=== PATIENT | female | born 1975 ===

== ENCOUNTER 2018-02-26 07:22 | Emergency (ER) | payer OTHER ==
[2018-02-26 07:28] VITALS: BMI 28.3
--- NOTE | 2018-02-26 08:21 | RAD ---
Date of service: 02/26/2018 HISTORY: vague left chest and left arm discomfort for 2d COMPARISON: Chest radiographs 02/02/2015. TECHNIQUE: Chest PA and lateral FINDINGS: LUNGS: Diminished inspiratory volume. No active airspace disease identified bilaterally. PLEURA: No significant pleural effusion identified. No pneumothorax apparent. CARDIOVASCULAR: No aortic atherosclerotic calcification present. Normal cardiac size. No pulmonary vascular congestion. OSSEOUS STRUCTURES: No significant abnormalities. VISUALIZED UPPER ABDOMEN: Normal. OTHER FINDINGS: None. IMPRESSION: Diminished airspace disease. No acute cardiovascular disease appreciated. No active airspace disease identified bilaterally.
--- NOTE | 2018-02-26 08:23 | ED PDOC ---
HPI: General Adult Time Seen by Provider: 02/26/18 07:43 Chief Complaint (Nursing): Upper Extremity Problem/Injury Chief Complaint (Provider): Body Ache and Left arm pain History Per: Patient History/Exam Limitations: no limitations Onset/Duration Of Symptoms: Days (2) Current Symptoms Are (Timing): Still Present Additional Complaint(s): 42 year old female with PMHx of hyperlipidemia presents to the ER fro an evaluation of left side discomfort onset for 2 days. Patient states she takes cholesterol pills that were giving her discomfort in different areas associated with nausea, tingling, body ache, body pain and bitterness in her mouth. Also states, she has an appointment with her PMD tomorrow. Patient reports the symptoms become worse when resting at night and moving. Patient provided a copy of her labs from December 26 which presents ASO titer, high cholesterol, no diabetes, normal urine test. She takes Rosuvastatin calcium 10mg and vitamin B1, B6, B12 injection but denies fever or vomiting. PMD: Non [facility] Provider Past Medical History Reviewed: Historical Data, Nursing Documentation, Vital Signs Vital Signs: Last Vital Signs Temp 97.9 F 02/26/18 07:28 Pulse 100 H 02/26/18 07:28 Resp 20 02/26/18 07:28 BP 136/91 H 02/26/18 07:28 Pulse Ox 99 02/26/18 07:28 - Medical History PMH: Hyperlipidemia Denies: Chronic Kidney Disease - Surgical History Surgical History: - Family History Family History: States: Unknown Family Hx - Immunization History Hx Tetanus Toxoid Vaccination: No Hx Influenza Vaccination: No Hx Pneumococcal Vaccination: No - Home Medications Home Medications: Ambulatory Orders Medication Instructions Recorded Multivit/Folic Acid/I 1 tab BID 08/23/17 [] Naproxen [Naprosyn] 500 mg PO BID 5 Days #10 tablet 08/26/17 Acetaminophen/Codeine 1 tab PO Q6H PRN #12 tab 08/27/17 [Tylenol/Codeine 300 MG/30 MG] Doxycycline Monohydrate 100 mg PO BID #20 tablet 08/27/17 Methylergonovine Maleate 0.2 mg PO Q6 #4 tablet 08/27/17 [Methergine] - Allergies Allergies/Adverse Reactions: Allergies Allergy/AdvReac Type Severity Reaction Status Date / Time No Known Allergies Allergy Verified 08/26/17 20:00 Review of Systems ROS Statement: Except As Marked, All Systems Reviewed And Found Negative Constitutional: Negative for: Fever Gastrointestinal: Positive for: Nausea. Negative for: Vomiting Musculoskeletal: Positive for: Arm Pain (left arm), Other (body pain) Neurological: Positive for: Other (tingling) Physical Exam - Reviewed Nursing Documentation Reviewed: Yes Vital Signs Reviewed: Yes - Physical Exam Appears: Positive for: Non-toxic, No Acute Distress Head Exam: Positive for: ATRAUMATIC, NORMAL INSPECTION, NORMOCEPHALIC Skin: Positive for: Normal Color, Warm, Dry Eye Exam: Positive for: EOMI, Normal appearance, PERRL ENT: Positive for: Normal ENT Inspection Neck: Positive for: Normal, Painless ROM, Supple. Negative for: Decreased ROM Cardiovascular/Chest: Positive for: Regular Rate, Rhythm. Negative for: Murmur Respiratory: Positive for: Normal Breath Sounds. Negative for: Decreased Breath Sounds, Wheezing, Respiratory Distress Gastrointestinal/Abdominal: Positive for: Soft, Tenderness (mild on left side and epigastric) Back: Positive for: Normal Inspection. Negative for: L CVA Tenderness, R CVA Tenderness Extremity: Positive for: Normal ROM. Negative for: Tenderness, Pedal Edema, Deformity Neurologic/Psych: Positive for: Alert, Oriented (x3). Negative for: Motor/Sensory Deficits - Laboratory Results Result Diagrams: 02/26/18 08:05 02/26/18 08:05 - ECG O2 Sat by Pulse Oximetry: 99 (RA) Pulse Ox Interpretation: Normal Medical Decision Making Medical Decision Making: Time: 0753 Initial Impression: Left sided discomfort, generalized body ache Initial Plan: --EKG --CMP --Troponin --ED Urine --CBC w/ Differential --Chest Two Views --Fisher Sponge Hooking --IV Insertion --Reevaluation EKG: normal sinus rhythm, rate at 72bpm ------ Scribe Attestation: Documented by Tanya Santos, acting as a scribe for Janis Ariza MD Provider Scribe Attestation: All medical record entries made by the Scribe were at my direction and personally dictated by me. I have reviewed the chart and agree that the record accurately reflects my personal performance of the history, physical exam, medical decision making, and the department course for this patient. I have also personally directed, reviewed, and agree with the discharge instructions and disposition. Disposition - Clinical Impression Clinical Impression: Myalgia - Patient ED Disposition Is Patient to be Admitted: No Doctor Will See Patient In The: Office Counseled Patient/Family Regarding: Diagnosis, Need For Followup - Disposition Referrals: [facility] [Outside] Disposition: Routine/Home Disposition Time: 09:15 Condition: STABLE Instructions: Muscle and Bone Pain (DC) Forms: [facility] (Micronesian), [facility] ED School/Work Excuse - POA Present On Arrival: None
[2018-02-26 08:33] LABS: BASO # 0.1 K/uL (0.0-0.2); BASO % 1.2 % (0.0-2.0); EOS # 0.2 K/uL (0.0-0.7); EOS % 2.2 % (0.0-4.0); LYMPH # 2.1 K/uL (1.0-4.3); LYMPH % 29.5 % (20.0-40.0); MEAN CELL VOLUME 90.4 fl (81.0-99.0); MEAN CORPUSCULAR HEMOGLOBIN 29.9 pg (27.0-31.0); MEAN PLATELET VOLUME 9.7 fl (7.2-11.7); MONO # 0.4 K/uL (0.0-0.8); MONO % 6.2 % (0.0-10.0); NEUT # 4.3 K/uL (1.8-7.0); NEUT % 60.9 % (50.0-75.0); NRBC % 0.1 % (0.0-0.0); RBC 4.68 Mil/uL (3.80-5.20); RED CELL DISTRIBUTION WIDTH 13.8 % (11.5-14.5); WHITE BLOOD COUNT 7.1 K/uL (4.8-10.8)
[2018-02-26 08:54] LABS: ALB/GLOB RATIO 1.1 (1.0-2.1); ALBUMIN 4.5 g/dL (3.5-5.0); ALT/SGPT 30 U/L (9-52); AST/SGOT 34 U/L (14-36); BLOOD UREA NITROGEN 12 mg/dl (7-17); CALCIUM 9.5 mg/dL (8.4-10.2); GFR NON-AFRICAN AMERICAN > 60
[2018-02-26 10:48] VITALS: BP 128/78; PULSE 78; RESP 19; TEMP 97; O2SAT 98
--- NOTE | 2018-02-26 13:59 | CARD ---
APPROVED REPORT Date of service: 02/26/2018 EKG Measurement Heart [id number] <Conclusion> Normal sinus rhythm Normal ECG
== END 2018-02-26 10:51 | disposition home or self-care (01) ==
LOC: H.ER 07:22
DX: M79.18 Myalgia, other site (principal)

== ENCOUNTER 2018-06-06 07:40 | Emergency (ER) | payer SELFPAY ==
[2018-06-06 07:46] VITALS: RESP 18; TEMP 98; BMI 27.4
[2018-06-06 10:01] LABS: BASO # 0.1 K/uL (0.0-0.2); BASO % 0.6 % (0.0-2.0); EOS # 0.2 K/uL (0.0-0.7); EOS % 1.9 % (0.0-4.0); HEMOGLOBIN 14.6 g/dL (12.0-16.0); LYMPH # 2.1 K/uL (1.0-4.3); LYMPH % 20.6 % (20.0-40.0); MEAN CELL VOLUME 89.3 fl (81.0-99.0); MEAN CORPUSCULAR HEMOGLOBIN 29.9 pg (27.0-31.0); MEAN CORPUSCULAR HGB CONC 33.5 g/dL (33.0-37.0); MEAN PLATELET VOLUME 9.4 fl (7.2-11.7); MONO # 0.6 K/uL (0.0-0.8); MONO % 5.6 % (0.0-10.0); NEUT # 7.1 K/uL (1.8-7.0); NEUT % 71.3 % (50.0-75.0); RBC 4.89 Mil/uL (3.80-5.20); RED CELL DISTRIBUTION WIDTH 13.6 % (11.5-14.5)
[2018-06-06 10:06] LABS: BLOOD UREA NITROGEN 8 mg/dl (7-17); CALCIUM 9.6 mg/dL (8.4-10.2); GFR NON-AFRICAN AMERICAN > 60
--- NOTE | 2018-06-06 10:07 | RAD ---
Date of service: 06/06/2018 HISTORY: chest pain COMPARISON: Chest radiograph dated 02/26/2018 TECHNIQUE: Chest PA and lateral FINDINGS: LUNGS: No active pulmonary disease. PLEURA: No significant pleural effusion identified. No pneumothorax apparent. CARDIOVASCULAR: No aortic atherosclerotic calcification present. Normal cardiac size. No pulmonary vascular congestion. OSSEOUS STRUCTURES: No significant abnormalities. VISUALIZED UPPER ABDOMEN: Normal. OTHER FINDINGS: None. IMPRESSION: No active disease.
--- NOTE | 2018-06-06 11:29 | ED PDOC ---
HPI: General Adult Time Seen by Provider: 06/06/18 08:40 Chief Complaint (Nursing): Abdominal Pain Chief Complaint (Provider): Left-Sided Full Body Pain History Per: Patient History/Exam Limitations: no limitations Onset/Duration Of Symptoms: Days Current Symptoms Are (Timing): Still Present Additional Complaint(s): Patient is a 42 y/o female with no significant PMHx who presents to the ED for evaluation of continuous, left-sided body pain, ongoing for the past two weeks. Patient also admits to a left-sided headache and anxiety. Patient denies any recent injuries, fever, vomiting, diarrhea, weakness, numbness, suicidal or homicidal ideation, and depression. Patient states she has been taking Ibuprofen but with no relief. PCP: None Provided Past Medical History Reviewed: Historical Data, Nursing Documentation, Vital Signs Vital Signs: Last Vital Signs Temp 98 F 06/06/18 07:45 Pulse 90 06/06/18 07:45 Resp 18 06/06/18 07:45 BP 130/83 06/06/18 07:45 Pulse Ox 98 06/06/18 07:49 - Medical History PMH: No Chronic Diseases Denies: Depression, Chronic Kidney Disease - Surgical History Surgical History: - Family History Family History: States: Unknown Family Hx - Immunization History Hx Tetanus Toxoid Vaccination: No Hx Influenza Vaccination: No Hx Pneumococcal Vaccination: No - Home Medications Home Medications: Ambulatory Orders Medication Instructions Recorded Multivit/Folic Acid/I 1 tab BID 08/23/17 [] Naproxen [Naprosyn] 500 mg PO BID 5 Days #10 tablet 08/26/17 Acetaminophen/Codeine 1 tab PO Q6H PRN #12 tab 08/27/17 [Tylenol/Codeine 300 MG/30 MG] Methylergonovine Maleate 0.2 mg PO Q6 #4 tablet 08/27/17 [Methergine] RX: Doxycycline Monohydrate 100 mg PO BID #20 tablet 08/27/17 Cyclobenzaprine [Cyclobenzaprine 10 mg PO TID #15 tab 06/06/18 HCl] Naproxen [Naprosyn] 500 mg PO BID #30 tablet 06/06/18 - Allergies Allergies/Adverse Reactions: Allergies Allergy/AdvReac Type Severity Reaction Status Date / Time No Known Allergies Allergy Verified 06/06/18 07:49 Review of Systems ROS Statement: Except As Marked, All Systems Reviewed And Found Negative Constitutional: Negative for: Fever Gastrointestinal: Negative for: Vomiting, Diarrhea Musculoskeletal: Positive for: Neck Pain (left-sided), Shoulder Pain (left), Arm Pain (left), Back Pain (left-sided), Hand Pain (left), Leg Pain (left), Foot Pain (left) Neurological: Positive for: Headache (left-sided). Negative for: Weakness, Numbness Psych: Positive for: Anxiety. Negative for: Depression, Suicidal ideation (or homicidal ideation) Physical Exam - Reviewed Nursing Documentation Reviewed: Yes Vital Signs Reviewed: Yes - Physical Exam Appears: Positive for: Non-toxic, No Acute Distress (comfortable) Head Exam: Positive for: ATRAUMATIC, NORMAL INSPECTION, NORMOCEPHALIC Skin: Positive for: Normal Color, Warm, Dry Eye Exam: Positive for: Normal appearance, EOMI, PERRL Neck: Positive for: Normal, Painless ROM, Supple Cardiovascular/Chest: Positive for: Regular Rate, Rhythm. Negative for: Murmur Respiratory: Positive for: Normal Breath Sounds. Negative for: Respiratory Distress Gastrointestinal/Abdominal: Positive for: Normal Exam, Soft. Negative for: Tenderness Back: Positive for: Normal Inspection. Negative for: L CVA Tenderness, R CVA Tenderness, Vertebral Tenderness Extremity: Positive for: Normal ROM, Other (joint are normal on palpation). Negative for: Pedal Edema, Deformity Neurologic/Psych: Positive for: Alert, Oriented. Negative for: Motor/Sensory Deficits - Laboratory Results Result Diagrams: 06/06/18 09:20 06/06/18 09:20 Lab Results: Troponin I < 0.0120 ng/mL (0.00-0.120) 06/06/18 09:20 - ECG ECG Rhythm: Positive for: Normal QRS, Normal ST Segment, Sinus Rhythm Rate: 69 O2 Sat by Pulse Oximetry: 98 (RA) Pulse Ox Interpretation: Normal - Progress Re-evaluation Time: 11:00 Condition: Re-examined, Improved Medical Decision Making Medical Decision Making: Time: 0910 Impression: Left-sided pain DDx includes but not limited to musculoskeletal pain, peripheral neuropathy, and fibromyalgia. Plan: EKG BMP Troponin I Urine Urine Dipstick CBC CXR Flexeril 10 mg PO Toradol 30 mg IM Time: 1004 FINDINGS: LUNGS: No active pulmonary disease. PLEURA: No significant pleural effusion identified. No pneumothorax apparent. CARDIOVASCULAR: No aortic atherosclerotic calcification present. Normal cardiac size. No pulmonary vascular congestion. OSSEOUS STRUCTURES: No significant abnormalities. VISUALIZED UPPER ABDOMEN: Normal. OTHER FINDINGS: None. IMPRESSION: No active disease. Time: 1115 Labs normal. CXR normal. Scribe Attestation: Documented by Elgin Rios, acting as a scribe for Toni Everett MD. Provider Scribe Attestation: All medical record entries made by the Scribe were at my direction and personally dictated by me. I have reviewed the chart and agree that the record a ccurately reflects my personal performance of the history, physical exam, medical decision making, and the department course for this patient. I have also personally directed, reviewed, and agree with the discharge instructions and disposition. Disposition - Clinical Impression Clinical Impression: Back pain, Pain of left side of body - Disposition Referrals: [facility] [Outside] Disposition Time: 11:15 Condition: GOOD Additional Instructions: NEFTALI PUTNAM, thank you for letting us take care of you today. Your provider was Toni Everett MD and you were treated for ABD/BACK PAIN. The emergency medical care you received today was directed at your acute symptoms. If you were prescribed any medication, please fill it and take as directed. It may take several days for your symptoms to resolve. Return to the Emergency Department if your symptoms worsen, do not improve, or if you have any other problems. Please contact your doctor or call one of the physicians/clinics you have been referred to that are listed on the Patient Visit Information form that is included in your discharge packet. Bring any paperwork you were given at discharge with you along with any medications you are taking to your follow up visit. Our treatment cannot replace ongoing medical care by a primary care provider outside of the emergency department. Thank you for allowing the [facility] team to be part of your care today. If you had an X-Ray or CT scan: A Radiologist will review the ED reading if any change in treatment is needed we will contact you. If you had a blood, urine, or wound culture: It will take several days for the results, if any change in treatment is needed we will contact you. If you had an STI test: It will take 48 hours for the results. Please call after 1 week if you have not heard back. Prescriptions: Cyclobenzaprine [Cyclobenzaprine HCl] 10 mg PO TID #15 tab Naproxen [Naprosyn] 500 mg PO BID #30 tablet Instructions: Muscle and Bone Pain (DC) Forms: [employer] (Romansh) Print Language: CHINESE
[2018-06-06 12:02] VITALS: BP 114/83
--- NOTE | 2018-06-06 16:53 | CARD ---
APPROVED REPORT Date of service: 06/06/2018 EKG Measurement Heart [id number] <Conclusion> Normal sinus rhythm Low voltage QRS Otherwise normal ECG
[2018-06-07 14:43] VITALS: PULSE 69; O2SAT 98
== END 2018-06-06 11:48 | disposition home or self-care (01) ==
LOC: H.ER 07:40
DX: M54.9 Dorsalgia, unspecified (principal); M79.10 Myalgia, unspecified site
CPT/HCPCS: 71046; 80048; 81025; 84484; 85025; 93005; 96372; 99284; J1885

== ENCOUNTER 2018-07-14 07:21 | Emergency (ER) | payer SELFPAY ==
[2018-07-14 07:35] VITALS: RESP 16; TEMP 98.3; BMI 27.6
--- NOTE | 2018-07-14 08:17 | ED PDOC ---
HPI: Back Time Seen by Provider: 07/14/18 07:28 Chief Complaint (Nursing): Back Pain Chief Complaint (Provider): Back Pain History Per: Patient History/Exam Limitations: no limitations Onset/Duration Of Symptoms: Days Current Symptoms Are (Timing): Still Present Additional Complaint(s): 42 year old female with a past medical history of hypercholesterolemia who is presenting to the ED for evaluation of diffuse back pain radiating to the abdomen ongoing for 2 months. Patient also complains of breast pain and states that she could possibly be but is unsure. 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 Patient reports that she had 3 episodes of vomiting today but denies any chest pain, diarrhea, vaginal bleeding, dysuria, pelvic pain, or shortness of breath. Of note, patient was seen here in April and May for similar complaints. PMD: none provided Past Medical History Reviewed: Historical Data, Nursing Documentation, Vital Signs Vital Signs: Last Vital Signs Temp 98.3 F 07/14/18 07:34 Pulse 81 07/14/18 07:34 Resp 16 07/14/18 07:34 BP 116/69 07/14/18 07:34 Pulse Ox 100 07/14/18 07:34 - Medical History PMH: Hypercholesterolemia Denies: Depression, Chronic Kidney Disease - Surgical History Surgical History: - Family History Family History: States: Unknown Family Hx - Social History Current smoker - smoking cessation education provided: No Alcohol: None Drugs: Denies - Immunization History Hx Tetanus Toxoid Vaccination: No Hx Influenza Vaccination: No Hx Pneumococcal Vaccination: No - Home Medications Home Medications: Ambulatory Orders Medication Instructions Recorded Multivit/Folic Acid/I 1 tab BID 08/23/17 [] Naproxen [Naprosyn] 500 mg PO BID 5 Days #10 tablet 08/26/17 Acetaminophen/Codeine 1 tab PO Q6H PRN #12 tab 08/27/17 [Tylenol/Codeine 300 MG/30 MG] Doxycycline Monohydrate 100 mg PO BID #20 tablet 08/27/17 Methylergonovine Maleate 0.2 mg PO Q6 #4 tablet 08/27/17 [Methergine] Cyclobenzaprine [Cyclobenzaprine 10 mg PO TID #15 tab 06/06/18 HCl] Naproxen [Naprosyn] 500 mg PO BID #30 tablet 06/06/18 - Allergies Allergies/Adverse Reactions: Allergies Allergy/AdvReac Type Severity Reaction Status Date / Time No Known Allergies Allergy Verified 07/14/18 07:50 Review of Systems ROS Statement: Except As Marked, All Systems Reviewed And Found Negative Cardiovascular: Negative for: Chest Pain Respiratory: Negative for: Shortness of Breath Gastrointestinal: Positive for: Vomiting, Abdominal Pain. Negative for: Diarrhea Genitourinary Female: Negative for: Dysuria, Vaginal Bleeding, Pelvic Pain Musculoskeletal: Positive for: Back Pain Physical Exam - Reviewed Nursing Documentation Reviewed: Yes Vital Signs Reviewed: Yes - Physical Exam Appears: Positive for: Non-toxic, No Acute Distress Head Exam: Positive for: ATRAUMATIC, NORMAL INSPECTION, NORMOCEPHALIC Skin: Positive for: Normal Color, Warm, DRY Eye Exam: Positive for: Normal appearance Neck: Positive for: Normal, Painless ROM Cardiovascular/Chest: Positive for: Regular Rate, Rhythm. Negative for: Murmur Respiratory: Positive for: Normal Breath Sounds. Negative for: Respiratory Distress Gastrointestinal/Abdominal: Positive for: Normal Exam, Soft. Negative for: Tenderness Back: Positive for: Normal Inspection. Negative for: L CVA Tenderness, R CVA Tenderness, Vertebral Tenderness Extremity: Positive for: Normal ROM, Other (straight leg raise: negative both legs ). Negative for: Deformity, Swelling Neurological/Psych: Positive for: Awake, Alert, Normal Tone, Oriented. Negative for: Motor/Sensory Deficits - Laboratory Results Result Diagrams: 07/14/18 08:15 07/14/18 08:15 Interpretation Of Abn Labs: no acute - ECG O2 Sat by Pulse Oximetry: 100 (RA) Pulse Ox Interpretation: Normal - CT Scan/US US Other Rad Interpretation: SLIUP - Progress ED Course And Treament: 1159: Stable. AAOx3. Pain free. Tolerated PO. Fu with pcp. Medical Decision Making Medical Decision Making: Time: 8:09 Plan: --ABO/RH Type --Blood Type and Screen --Beta HCG, Quantitative --CMP --ED Urine --ED Urine Dipstick --CBC --Tylenol 650 mg PO --Ultrasound OB Transvaginal Urine positive. Scribe Attestation: Documented by Marie Quiñones, acting as a scribe for Jordan Payne MD. Provider Scribe Attestation: All medical record entries made by the Scribe were at my direction and personally dictated by me. I have reviewed the chart and agree that the record accurately reflects my personal performance of the history, physical exam, [facility] decision making, and the department course for this patient. I have also personally directed, reviewed, and agree with the discharge instructions and disposition. Disposition - Clinical Impression Clinical Impression: Threatened - Patient ED Disposition Is Patient to be Admitted: No Counseled Patient/Family Regarding: Studies Performed, Diagnosis, Need For Followup - Disposition [facility] - 07/15/18 Disposition: Routine/Home Disposition Time: 12:00 Condition: STABLE Additional Instructions: Return if not better in 3 days. Instructions: Threatened Miscarriage Print Language: CHINESE
[2018-07-14 08:41] LABS: BASO % 0.5 % (0.0-2.0); EOS # 0.2 K/uL (0.0-0.7); EOS % 2.2 % (0.0-4.0); HEMOGLOBIN 13.4 g/dL (12.0-16.0); LYMPH # 1.7 K/uL (1.0-4.3); LYMPH % 20.9 % (20.0-40.0); MEAN CELL VOLUME 90.2 fl (81.0-99.0); MEAN CORPUSCULAR HEMOGLOBIN 29.6 pg (27.0-31.0); MEAN CORPUSCULAR HGB CONC 32.8 g/dL (33.0-37.0); MEAN PLATELET VOLUME 8.8 fl (7.2-11.7); MONO # 0.5 K/uL (0.0-0.8); MONO % 5.9 % (0.0-10.0); NEUT # 5.7 K/uL (1.8-7.0); NEUT % 70.5 % (50.0-75.0); NRBC % 0.1 % (0.0-0.0); RBC 4.53 Mil/uL (3.80-5.20); RED CELL DISTRIBUTION WIDTH 14.3 % (11.5-14.5); WHITE BLOOD COUNT 8.1 K/uL (4.8-10.8)
[2018-07-14 08:59] LABS: ALB/GLOB RATIO 1.2 (1.0-2.1); ALBUMIN 4.3 g/dL (3.5-5.0); ALT/SGPT 19 U/L (9-52); AST/SGOT 20 U/L (14-36); BLOOD UREA NITROGEN 6 mg/dl (7-17); CALCIUM 9.7 mg/dL (8.4-10.2); GFR NON-AFRICAN AMERICAN > 60
--- NOTE | 2018-07-14 10:42 | US ---
Date of service: 07/14/2018 PROCEDURE: OB Pelvic Ultrasound HISTORY: preg and pain 05/22/2018 COMPARISON: None available. FINDINGS: UTERUS: Gestational sac: Gestational sac diameter 17 mm corresponding to 6 weeks 1 day gestational age. [place]-rump length 5 mm corresponding to 6 weeks 1 day. Heart rate: 121 bpm. age (Ultrasound estimated): 6 weeks 1 day Filomena-gestational hemorrhage: None. Date of delivery (Ultrasound estimated) : 03/08/2019 Uterus measures 11.9 x 8.3 x 5.5 cm. Normal in size and appearance. CERVIX: . Long and closed. No cervical abnormality seen. RIGHT OVARY: Measures 2.8 x 2.4 x 1.9 cm. No mass lesion. Normal flow. LEFT OVARY: Measures 3.6 x 2.7 x 2.8 cm. No solid mass. Normal flow. FREE FLUID: None. OTHER FINDINGS: None. IMPRESSION: Single live intrauterine gestation of approximately 6 weeks 1 day gestational age. heart rate 121. DELBERT by ultrasound 03/08/2019. No evidence of subchorionic hemorrhage.
[2018-07-14 15:26] VITALS: BP 116/75; PULSE 77; O2SAT 99
== END 2018-07-14 12:01 | disposition home or self-care (01) ==
LOC: H.ER 07:21
DX: O20.0 Threatened abortion (principal); Z3A.01 Less than 8 weeks gestation of pregnancy; E78.00 Pure hypercholesterolemia, unspecified

== ENCOUNTER 2018-08-16 07:07 | Emergency (ER) | payer SELFPAY ==
[2018-08-16 07:16] VITALS: BMI 27.3
--- NOTE | 2018-08-16 07:34 | ED PDOC ---
HPI: Female Pain Time Seen by Provider: 08/16/18 07:08 Chief Complaint (Nursing): Female Genitourinary Chief Complaint (Provider): Female Genitourinary History Per: Patient History/Exam Limitations: no limitations Onset/Duration Of Symptoms: Days (x2) Current Symptoms Are (Timing): Still Present Additional Complaint(s): 42 year old female, A1 at approximately 11 weeks in , presents to the emergency department with a complaint of mild vaginal bleeding associated with pelvic cramping since yesterday. She denies any fever or chills. PCP: [facility] Past Medical History Reviewed: Historical Data, Nursing Documentation, Vital Signs Vital Signs: Last Vital Signs Temp 98.6 F 08/16/18 07:16 Pulse 75 08/16/18 07:16 Resp 20 08/16/18 07:16 BP 120/83 08/16/18 07:16 Pulse Ox 99 08/16/18 07:16 - Medical History PMH: Hypercholesterolemia Denies: Depression, Chronic Kidney Disease - Surgical History Surgical History: - Family History Family History: States: Unknown Family Hx - Immunization History Hx Tetanus Toxoid Vaccination: No Hx Influenza Vaccination: No Hx Pneumococcal Vaccination: No - Home Medications Home Medications: Ambulatory Orders Medication Instructions Recorded Multivit/Folic Acid/I 1 tab BID 08/23/17 [] Naproxen [Naprosyn] 500 mg PO BID 5 Days #10 tablet 08/26/17 Acetaminophen/Codeine 1 tab PO Q6H PRN #12 tab 08/27/17 [Tylenol/Codeine 300 MG/30 MG] Doxycycline Monohydrate 100 mg PO BID #20 tablet 08/27/17 Methylergonovine Maleate 0.2 mg PO Q6 #4 tablet 08/27/17 [Methergine] Cyclobenzaprine [Cyclobenzaprine 10 mg PO TID #15 tab 06/06/18 HCl] Naproxen [Naprosyn] 500 mg PO BID #30 tablet 06/06/18 - Allergies Allergies/Adverse Reactions: Allergies Allergy/AdvReac Type Severity Reaction Status Date / Time No Known Allergies Allergy Verified 08/16/18 07:28 Review of Systems ROS Statement: Except As Marked, All Systems Reviewed And Found Negative Constitutional: Negative for: Fever, Chills Genitourinary Female: Positive for: Vaginal Bleeding (mild), Pelvic Pain (cramping) Physical Exam - Reviewed Nursing Documentation Reviewed: Yes Vital Signs Reviewed: Yes - Physical Exam Appears: Positive for: No Acute Distress Pulses-Radial (L): 2+ Pulses-Radial (R): 2+ Pelvic Exam: Positive for: Blood (small amount in vault), Other (RN Dyan present as buckle stringer. (+) closed cervics). Negative for: No Masses, Tender Ad nexa Neurological/Psych: Positive for: Awake, Alert, Normal Tone, Oriented - Laboratory Results Result Diagrams: 08/16/18 07:45 08/16/18 07:45 - ECG O2 Sat by Pulse Oximetry: 99 (RA) Pulse Ox Interpretation: Normal Medical Decision Making Medical Decision Making: Time: 732 Initial Plan: * Labs * US transvaginal Scribe Attestation: Documented by Brooke Chow, acting as a scribe for Butch Amador MD. Provider Scribe Attestation: All medical record entries made by the Scribe were at my direction and personally dictated by me. I have reviewed the chart and agree that the record accurately reflects my personal performance of the history, physical exam, medical decision making, and the department course for this patient. I have also personally directed, reviewed, and agree with the discharge instructions and disposition. Disposition - Clinical Impression Clinical Impression: Threatened - Patient ED Disposition Is Patient to be Admitted: No Counseled Patient/Family Regarding: Studies Performed, Diagnosis, Need For Followup - Disposition [facility]] Disposition: Routine/Home Disposition Time: 08:53 Condition: FAIR Instructions: Threatened Miscarriage Forms: [employer] (Taiwanese) Print Language: SOUTH SUDANESE
[2018-08-16 08:11] LABS: BASO % 0.6 % (0.0-2.0); EOS # 0.2 K/uL (0.0-0.7); HEMOGLOBIN 13.7 g/dL (12.0-16.0); LYMPH # 1.7 K/uL (1.0-4.3); MEAN CELL VOLUME 90.5 fl (81.0-99.0); MEAN CORPUSCULAR HEMOGLOBIN 30.7 pg (27.0-31.0); MEAN CORPUSCULAR HGB CONC 33.9 g/dL (33.0-37.0); MEAN PLATELET VOLUME 8.6 fl (7.2-11.7); MONO # 0.5 K/uL (0.0-0.8); MONO % 5.8 % (0.0-10.0); NEUT # 5.6 K/uL (1.8-7.0); NEUT % 70.6 % (50.0-75.0); RBC 4.46 Mil/uL (3.80-5.20); RED CELL DISTRIBUTION WIDTH 14.5 % (11.5-14.5)
[2018-08-16 08:30] LABS: ALB/GLOB RATIO 1.3 (1.0-2.1); ALBUMIN 4.5 g/dL (3.5-5.0); ALT/SGPT 20 U/L (9-52); AST/SGOT 27 U/L (14-36); BLOOD UREA NITROGEN 7 mg/dl (7-17); CALCIUM 9.6 mg/dL (8.4-10.2); GFR NON-AFRICAN AMERICAN > 60
--- NOTE | 2018-08-16 09:55 | US ---
Date of service: 08/16/2018 PROCEDURE: OB Pelvic Ultrasound HISTORY: r/o ectopic LMP: 05/22/2018 COMPARISON: 07/14/2018 FINDINGS: UTERUS: Gestational sac: 37 mm equal to 9 weeks 0 days gestational age. [place]-rump length, 21 mm equivalent to 8 weeks 5 days. Heart rate: No detectable cardiac activity. age (Ultrasound estimated): 8 weeks 6 days Fil[place]-gestational hemorrhage: None. Date of delivery (Ultrasound estimated) : 03/22/2019 Uterus measures 13.8 x 9.2 x 6.2 cm. Normal in size and appearance. CERVIX: Measures approximately 3 cm. Long and closed. No cervical abnormality seen. RIGHT OVARY: Not visualized LEFT OVARY: Measures 2.3 x 1.8 x 1.6 cm. No solid mass. Normal flow. FREE FLUID: None. OTHER FINDINGS: None. IMPRESSION: Intrauterine gestation of approximately 8 weeks 6 days gestational age. No detectable cardiac activity. No subchorionic hemorrhage. Findings consistent with demise. Cervix long and closed.
[2018-08-16 10:30] VITALS: BP 116/83; PULSE 71; RESP 16; TEMP 98.2; O2SAT 98
== END 2018-08-16 10:31 | disposition home or self-care (01) ==
LOC: H.ER 07:07
DX: O20.0 Threatened abortion (principal); O99.281 Endocrine, nutritional and metabolic diseases complicating pregnancy, first trimester; E78.00 Pure hypercholesterolemia, unspecified; Z3A.11 11 weeks gestation of pregnancy

== ENCOUNTER 2018-08-17 19:48 | Emergency (ER) | payer SELFPAY ==
[2018-08-17 19:48] VITALS: BMI 27.3
[2018-08-17] MEDS ORDERED: Sodium Chloride 0.9% 1,000 ML IV STA ×2 (20:25→21:11)
[2018-08-17] MEDS ORDERED: Morphine 4 MG/ML VIAL IVP ONE (20:25)
[2018-08-17] MEDS ORDERED: Morphine 4 MG/ML VIAL ONE (20:30)
--- NOTE | 2018-08-17 20:30 | ED PDOC ---
HPI: Female Pain Time Seen by Provider: 08/17/18 20:04 Chief Complaint (Nursing): Female Genitourinary Chief Complaint (Provider): Female Genitourinary History Per: Patient History/Exam Limitations: no limitations Onset/Duration Of Symptoms: Hrs (x 5) Current Symptoms Are (Timing): Still Present Quality Of Discomfort: Sharp, Cramping, "Pain" Associated Symptoms: Nausea, Vomiting, Back Pain Additional Complaint(s): 42 year old female, diagnosed yesterday with a spontaneous miscarriage, presents to the ED for evaluation of strong abdominal cramping radiating to the back associated with nausea and an episode of non-bloody, non-bilious vomiting for approximately 5 hours. Patient ranks pain as 10/10 and describes it further as sharp and constant. Denies any other complaints. PMD: [facility] Action Abnormal Vaginal Bleeding: Yes Last Menstral Period: 05/23/18 : 4 Para: 2 Past Medical History Reviewed: Historical Data, Nursing Documentation, Vital Signs Vital Signs: Last Vital Signs Temp 98.1 F 08/17/18 19:57 Pulse 76 08/17/18 19:57 Resp 18 08/17/18 19:57 BP 115/65 08/17/18 19:57 Pulse Ox 99 08/17/18 19:57 - Medical History PMH: Hypercholesterolemia Denies: Depression, Chronic Kidney Disease - Surgical History Surgical History: (x2 ) - Family History Family History: States: Unknown Family Hx - Social History Current smoker - smoking cessation education provided: No Alcohol: None Drugs: Denies - Immunization History Hx Tetanus Toxoid Vaccination: No Hx Influenza Vaccination: No Hx Pneumococcal Vaccination: No - Home Medications Home Medications: Ambulatory Orders Medication Instructions Recorded Multivit/Folic Acid/I 1 tab BID 08/23/17 [] Naproxen [Naprosyn] 500 mg PO BID 5 Days #10 tablet 08/26/17 Acetaminophen/Codeine 1 tab PO Q6H PRN #12 tab 08/27/17 [Tylenol/Codeine 300 MG/30 MG] Doxycycline Monohydrate 100 mg PO BID #20 tablet 08/27/17 Methylergonovine Maleate 0.2 mg PO Q6 #4 tablet 08/27/17 [Methergine] Cyclobenzaprine [Cyclobenzaprine 10 mg PO TID #15 tab 06/06/18 HCl] Naproxen [Naprosyn] 500 mg PO BID #30 tablet 06/06/18 Ibuprofen [Motrin Tab] 600 mg PO Q6 PRN #16 tab 08/18/18 - Allergies Allergies/Adverse Reactions: Allergies Allergy/AdvReac Type Severity Reaction Status Date / Time No Known Allergies Allergy Verified 08/16/18 07:28 Review of Systems ROS Statement: Except As Marked, All Systems Reviewed And Found Negative Gastrointestinal: Positive for: Nausea, Vomiting (x 1), Abdominal Pain (sharp, constant, abdominal cramping) Musculoskeletal: Positive for: Back Pain (radiating from abdomen) Physical Exam - Reviewed Nursing Documentation Reviewed: Yes Vital Signs Reviewed: Yes - Physical Exam Appears: Positive for: Uncomfortable Head Exam: Positive for: ATRAUMATIC, NORMAL INSPECTION, NORMOCEPHALIC Skin: Positive for: Normal Color, Warm, Dry Eye Exam: Positive for: EOMI, Normal appearance, PERRL Neck: Positive for: Normal, Painless ROM, Supple Cardiovascular/Chest: Positive for: Regular Rate, Rhythm. Negative for: Murmur Respiratory: Positive for: Normal Breath Sounds. Negative for: Respiratory Distress Gastrointestinal/Abdominal: Positive for: Soft, Tenderness ( suprapubic tenderness). Negative for: Mass, Guarding Back: Positive for: Normal Inspection. Negative for: L CVA Tenderness, R CVA Tenderness, Vertebral Tenderness Extremity: Positive for: Normal ROM (x 4). Negative for: Deformity, Swelling Neurological/Psych: Positive for: Awake, Alert, Normal Tone, Oriented (x 3). Negative for: Motor/Sensory Deficits - Laboratory Results Result Diagrams: 08/17/18 21:17 08/17/18 21:17 - ECG O2 Sat by Pulse Oximetry: 99 (RA) Pulse Ox Interpretation: Normal Medical Decision Making Medical Decision Makin:04 Impression: 42 year old female with pain in active spontaneous Initial Plan: --Beta-HCG --CMP --CBC --Morphine 4 mg IV --NS IV 1,000 mls --Zofran 4 mg IV 00:07 Labs reviewed and reveal no clinically significant abnormalities with the ex ception of a decreased beta-HCG when compared to 24 hours prior. Patient reports improvement of pain and is stable for discharge. Diagnosis is spontaneous miscarriage. Scribe Attestation: Documented by Leti Celeste, acting as a scribe Ciara Salinas MD Provider Scribe Attestation: All medical record entries made by the Scribe were at my direction and personally dictated by me. I have reviewed the chart and agree that the record accurately reflects my personal performance of the history, physical exam, medical decision making, and the department course for this patient. I have also personally directed, reviewed, and agree with the discharge instructions and disposition Disposition - Clinical Impression Clinical Impression: Spontaneous - Patient ED Disposition Is Patient to be Admitted: No - Disposition Disposition: Routine/Home Disposition Time: 00:10 Condition: STABLE Prescriptions: Ibuprofen [Motrin Tab] 600 mg PO Q6 PRN #16 tab PRN Reason: pelvic pain Instructions: Miscarriage, Dealing With Miscarriage Forms: [email or web address] (Solomon Islander) Print Language: GABONESE
[2018-08-17 21:29] LABS: BASO % 0.3 % (0.0-2.0); EOS # 0.1 K/uL (0.0-0.7); EOS % 0.7 % (0.0-4.0); LYMPH # 2.2 K/uL (1.0-4.3); MEAN CELL VOLUME 90.6 fl (81.0-99.0); MEAN CORPUSCULAR HEMOGLOBIN 30.1 pg (27.0-31.0); MEAN CORPUSCULAR HGB CONC 33.2 g/dL (33.0-37.0); MEAN PLATELET VOLUME 8.6 fl (7.2-11.7); MONO # 0.5 K/uL (0.0-0.8); MONO % 4.1 % (0.0-10.0); NEUT # 10.1 K/uL (1.8-7.0); NEUT % 77.9 % (50.0-75.0); NRBC % 0.1 % (0.0-0.0); RBC 4.32 Mil/uL (3.80-5.20); RED CELL DISTRIBUTION WIDTH 14.3 % (11.5-14.5); WHITE BLOOD COUNT 12.9 K/uL (4.8-10.8)
[2018-08-17 21:43] LABS: ALB/GLOB RATIO 1.3 (1.0-2.1); ALBUMIN 4.5 g/dL (3.5-5.0); ALT/SGPT 24 U/L (9-52); AST/SGOT 31 U/L (14-36); BLOOD UREA NITROGEN 12 mg/dl (7-17); CALCIUM 9.5 mg/dL (8.4-10.2); GFR NON-AFRICAN AMERICAN > 60
[2018-08-18 02:30] VITALS: BP 110/64; PULSE 71; RESP 16; TEMP 97.9; O2SAT 97
[2018-08-18] MEDS ORDERED: Morphine 4 MG/ML VIAL ONE (06:54)
== END 2018-08-18 00:55 | disposition home or self-care (01) ==
LOC: H.ER 19:48
DX: O03.9 Complete or unspecified spontaneous abortion without complication (principal)
CPT/HCPCS: 80053; 84702; 85025; 96374; 99285; J2270; J2405; J7030

== ENCOUNTER 2018-08-18 06:20 | Emergency (ER) | payer SELFPAY ==
[2018-08-18 06:30] VITALS: BMI 28.5
[2018-08-18] MEDS ORDERED: Morphine 4 MG/ML VIAL IVP ONE (06:30)
[2018-08-18] MEDS ORDERED: Sodium Chloride 0.9% 1,000 ML IV STA (06:30)
--- NOTE | 2018-08-18 06:55 | ED PDOC ---
HPI: Abdomen Time Seen by Provider: 08/18/18 06:29 Chief Complaint (Nursing): Abdominal Pain Chief Complaint (Provider): Abdominal Pain History Per: Patient History/Exam Limitations: no limitations Onset/Duration Of Symptoms: Days (x 3) Current Symptoms Are (Timing): Still Present Quality Of Discomfort: "Pain" Additional Complaint(s): 42 year old female presents to the ED for evaluation of ongoing abdominal pain, nausea and vaginal bleeding with clots. Patient was diagnosed with a spontaneous 2 days ago at this facility and seen again yesterday for the same symptoms. The workup yesterday also indicated active . Patient was pain free after she was given 4 mg of Morphine and 2 boluses of IV fluids. She was then discharged with Motrin. Since going home, the pain returned and the Motrin has not been effective. She offers no other complaints. PMD: [facility] Abnormal Vaginal Bleeding: Yes : 4 Para: 2 Past Medical History Reviewed: Historical Data, Nursing Documentation, Vital Signs Vital Signs: Last Vital Signs Temp 97.7 F 08/18/18 06:50 Pulse 84 08/18/18 06:50 Resp 22 08/18/18 06:50 BP 110/69 08/18/18 06:50 Pulse Ox 99 08/18/18 06:50 - Medical History PMH: Hypercholesterolemia Denies: Depression, Chronic Kidney Disease - Surgical History Surgical History: (x2 ) - Family History Family History: States: Unknown Family Hx - Immunization History Hx Tetanus Toxoid Vaccination: No Hx Influenza Vaccination: No Hx Pneumococcal Vaccination: No - Home Medications Home Medications: Ambulatory Orders Medication Instructions Recorded Multivit/Folic Acid/I 1 tab BID 08/23/17 [] Naproxen [Naprosyn] 500 mg PO BID 5 Days #10 tablet 08/26/17 Acetaminophen/Codeine 1 tab PO Q6H PRN #12 tab 08/27/17 [Tylenol/Codeine 300 MG/30 MG] Doxycycline Monohydrate 100 mg PO BID #20 tablet 08/27/17 Methylergonovine Maleate 0.2 mg PO Q6 #4 tablet 08/27/17 [Methergine] Cyclobenzaprine [Cyclobenzaprine 10 mg PO TID #15 tab 06/06/18 HCl] Naproxen [Naprosyn] 500 mg PO BID #30 tablet 06/06/18 Acetaminophen with Codeine 1 tab PO Q6H PRN #10 tab 08/18/18 [Tylenol with Codeine No. 3 300 mg-30 mg] Ibuprofen [Motrin Tab] 600 mg PO Q6 PRN #16 tab 08/18/18 Ibuprofen [Motrin] 600 mg PO Q6H PRN #20 tab 08/18/18 - Allergies Allergies/Adverse Reactions: Allergies Allergy/AdvReac Type Severity Reaction Status Date / Time No Known Allergies Allergy Verified 08/18/18 15:04 Review of Systems ROS Statement: Except As Marked, All Systems Reviewed And Found Negative Gastrointestinal: Positive for: Abdominal Pain Genitourinary Female: Positive for: Vaginal Bleeding Physical Exam - Reviewed Nursing Documentation Reviewed: Yes Vital Signs Reviewed: Yes - Physical Exam Appears: Positive for: Uncomfortable Head Exam: Positive for: ATRAUMATIC, NORMAL INSPECTION, NORMOCEPHALIC Skin: Positive for: Normal Color, Warm, Dry Eye Exam: Positive for: EOMI, Normal appearance, PERRL Neck: Positive for: Normal, Painless ROM, Supple Cardiovascular/Chest: Positive for: Regular Rate, Rhythm. Negative for: Murmur Respiratory: Positive for: Normal Breath Sounds. Negative for: Respiratory Distress Gastrointestinal/Abdominal: Positive for: Tenderness (suprapubic) Back: Positive for: Normal Inspection. Negative for: L CVA Tenderness, R CVA Tenderness Extremity: Positive for: Normal ROM (x 4). Negative for: Deformity Neurological/Psych: Positive for: Awake, Alert, Normal Tone, Oriented (x 3). Negative for: Motor/Sensory Deficits - Laboratory Results Result Diagrams: 08/18/18 06:55 08/18/18 06:55 - ECG O2 Sat by Pulse Oximetry: 99 (RA) Pulse Ox Interpretation: Normal Medical Decision Making Medical Decision Makin:30 Impression: abdominal pain in setting of active Initial Plan: --Beta-HCG --CBC --CMP --Morphine 4 mg IV --NS IV 1,000 mls --Zofran 4 mg IV --UA --OB transvag US 07:00 Patient's care endorsed to Dr. Otoole pending full ER workup, re-evaluation and final disposition. Scribe Attestation: Documented by Leti Celeste, acting as a scribe Ciara Salinas MD Provider Scribe Attestation: All medical record entries made by the Scribe were at my direction and personally dictated by me. I have reviewed the chart and agree that the record accurately reflects my personal performance of the history, physical exam, medical decision making, and the department course for this patient. I have also personally directed, reviewed, and agree with the discharge instructions and disposition Disposition - Clinical Impression Clinical Impression: Inevitable spontaneous - Patient ED Disposition Is Patient to be Admitted: Transfer of Care - Disposition [facility] Disposition: Transfer of Care Disposition Time: 07:00 Condition: STABLE Prescriptions: Acetaminophen with Codeine [Tylenol with Codeine No. 3 300 mg-30 mg] 1 tab PO Q6H PRN #10 tab PRN Reason: Pain, Severe (8-10) Ibuprofen [Motrin] 600 mg PO Q6H PRN #20 tab PRN Reason: Pain, Moderate (4-7) Instructions: Miscarriage, Opioids for Short-Term Treatment of Pain Forms: [employer] (Estonian) Print Language: POLISH Patient Signed Over To: Yi Otoole
[2018-08-18 07:02] LABS: BASO # 0.1 K/uL (0.0-0.2); BASO % 0.6 % (0.0-2.0); EOS # 0.1 K/uL (0.0-0.7); EOS % 0.5 % (0.0-4.0); HEMOGLOBIN 12.7 g/dL (12.0-16.0); LYMPH # 2.3 K/uL (1.0-4.3); LYMPH % 16.8 % (20.0-40.0); MEAN CELL VOLUME 89.1 fl (81.0-99.0); MEAN CORPUSCULAR HGB CONC 33.6 g/dL (33.0-37.0); MEAN PLATELET VOLUME 8.4 fl (7.2-11.7); MONO # 0.8 K/uL (0.0-0.8); NEUT # 10.4 K/uL (1.8-7.0); NEUT % 76.1 % (50.0-75.0); NRBC % 0.2 % (0.0-0.0); RBC 4.26 Mil/uL (3.80-5.20); RED CELL DISTRIBUTION WIDTH 14.1 % (11.5-14.5); WHITE BLOOD COUNT 13.6 K/uL (4.8-10.8)
[2018-08-18 07:05] LABS: URINE BILIRUBIN NEGATIVE (NEGATIVE); URINE BLOOD SMALL (NEGATIVE); URINE CLARITY SLIGHTY-CLOUDY (Clear); URINE COLOR YELLOW (YELLOW); URINE GLUCOSE (UA) NEG (NEGATIVE); URINE LEUKOCYTE ESTERASE TRACE Leu/uL (Negative); URINE PROTEIN >=500 mg/dL (NEGATIVE); URINE UROBILINOGEN 0.2-1.0 mg/dL (0.2-1.0)
--- NOTE | 2018-08-18 07:10 | ED PDOC ---
- Laboratory Results Result Diagrams: 08/18/18 06:55 08/18/18 06:55 - ECG O2 Sat by Pulse Oximetry: 99 (RA) Pulse Ox Interpretation: Normal Medical Decision Making Medical Decision Making: Time: 7:00 Patient who is with a history of demise was endorsed to me by Dr. Salinas pending ultrasound, labs, and final ER disposition. Upon bedside evaluation patient denies any new complaints and is stable in the ED at this time. Accession No. : [id number] Patient Name / ID : JERSEY NEFTALI / [id number] Exam Date : 08/18/2018 07:07:06 ( Approved ) Study Comment : Sex / Age : F / 42Y Creator : jacob benitez Dictator : Nat[facility] Supervisor : [employer] Operator : Natacha Stiles Approver2 : Report Date : 08/18/2018 07:38:10 My Comment : Date of service: 08/18/2018 HISTORY: status; severe cramping and heavy bleeding COMPARISON: Ob transvaginal ultrasound report 08/16/2018 TECHNIQUE: Transvaginal (transabdominal approach nodes the left ovary) FINDINGS: UTERUS: Measures 13.1 x 8.0 x 5.8 cm. Anteverted. No fibroid seen. A misshapen gestational sac with mean sac diameter 4.4 cm corresponding to 9 weeks 6 days is noted. A crown-rump length/ pole of 2.0 cm corresponding to 8 weeks 4 days is present. As was noted previously no cardiac activity is seen at this setting. The misshapened gestational sac along with pole without cardiac activity is seen low in the cervix along with abnormal material within the cervix. In the posterior upper uterus is a sub chorionic lead approximately 1.7 x 1.6 by 0.9 cm. ENDOMETRIUM: Measures mm in diameter. Unremarkable. CERVIX: 2.8 cm in length. Some abnormal appearing material entering the internal cervical os is suggested. RIGHT OVARY: Not identified. LEFT OVARY: Within the left ovary there is a focus measuring 2.9 x 2.4 x 2.4 cm a small residual corpus luteal complicate cyst is believed most likely. The left ovary is probably closer to 4.5 x 2.5 x 2.5 cm in size.. No suspicious masses noted. Normal flow. FREE FLUID: No significant free fluid noted. OTHER FINDINGS: There is homogeneous low level echoes in the vagina compatible with blood IMPRESSION: Findings compatible with demise and an in progress. 08:[address] Brennan, recommends Toradol for pain control. Can discharge home with Tylenol #3 and Motrin, to follow-up with [facility] for reevaluation. 8:22 Using dryer feeder (Jacqueline SeeMejennie), patient informed about opioid use and counseled on usage and risks of these drugs. Provider explained ultrasound report to patient who verbalized understanding. Patient is stable in the ED at this time and will be discharged home with strongly encouraged outpatient follow-up. -------- --------- Scribe Attestation: Documented by Marie Quiñones, acting as a scribe for Yi Otoole MD. Provider Scribe Attestation: All medical record entries made by the Scribe were at my direction and personally dictated by me. I have reviewed the chart and agree that the record accurately reflects my personal performance of the history, physical exam, medical decision making, and the department course for this patient. I have also personally directed, reviewed, and agree with the discharge instructions and disposition. Disposition - Clinical Impression Clinical Impression: Inevitable spontaneous - POA Present On Arrival: None - Disposition [facility]] Disposition: Routine/Home Disposition Time: 08:19 Condition: STABLE Prescriptions: Acetaminophen with Codeine [Tylenol with Codeine No. 3 300 mg-30 mg] 1 tab PO Q6H PRN #10 tab PRN Reason: Pain, Severe (8-10) Ibuprofen [Motrin] 600 mg PO Q6H PRN #20 tab PRN Reason: Pain, Moderate (4-7) Instructions: Miscarriage, Opioids for Short-Term Treatment of Pain Forms: [employer] (Telugu) Print Language: GREEK
[2018-08-18 07:15] LABS: ALB/GLOB RATIO 1.3 (1.0-2.1); ALBUMIN 4.1 g/dL (3.5-5.0); ALT/SGPT 19 U/L (9-52); AST/SGOT 24 U/L (14-36); BLOOD UREA NITROGEN 7 mg/dl (7-17); CALCIUM 8.8 mg/dL (8.4-10.2); GFR NON-AFRICAN AMERICAN > 60
[2018-08-18 07:59] VITALS: RESP 18
--- NOTE | 2018-08-18 08:11 | US ---
Date of service: 08/18/2018 HISTORY: status; severe cramping and heavy bleeding COMPARISON: Ob transvaginal ultrasound report 08/16/2018 TECHNIQUE: Transvaginal (transabdominal approach nodes the left ovary) FINDINGS: UTERUS: Measures 13.1 x 8.0 x 5.8 cm. Anteverted. No fibroid seen. A misshapen gestational sac with mean sac diameter 4.4 cm corresponding to 9 weeks 6 days is noted. A crown-rump length/ pole of 2.0 cm corresponding to 8 weeks 4 days is present. As was noted previously no cardiac activity is seen at this setting. The misshapened gestational sac along with pole without cardiac activity is seen low in the cervix along with abnormal material within the cervix. In the posterior upper uterus is a sub chorionic lead approximately 1.7 x 1.6 by 0.9 cm. ENDOMETRIUM: Measures mm in diameter. Unremarkable. CERVIX: 2.8 cm in length. Some abnormal appearing material entering the internal cervical os is suggested. RIGHT OVARY: Not identified. LEFT OVARY: Within the left ovary there is a focus measuring 2.9 x 2.4 x 2.4 cm a small residual corpus luteal complicate cyst is believed most likely. The left ovary is probably closer to 4.5 x 2.5 x 2.5 cm in size.. No suspicious masses noted. Normal flow. FREE FLUID: No significant free fluid noted. OTHER FINDINGS: There is homogeneous low level echoes in the vagina compatible with blood IMPRESSION: Findings compatible with demise and an in progress. Comments: Study marked for PA review .
[2018-08-18 08:20] VITALS: O2SAT 99
[2018-08-18 08:38] VITALS: BP 118/70; PULSE 71; TEMP 98
== END 2018-08-18 08:36 | disposition home or self-care (01) ==
LOC: H.ER 06:20
DX: O03.9 Complete or unspecified spontaneous abortion without complication (principal); E78.00 Pure hypercholesterolemia, unspecified
CPT/HCPCS: 76817; 80053; 81003; 84702; 85025; 96374; 99285; J2270; J2405; J7030

== ENCOUNTER 2018-08-18 14:58 | Emergency (ER) | payer SELFPAY ==
[2018-08-18 14:58] VITALS: BMI 28.5
[2018-08-18 15:07] VITALS: RESP 16; TEMP 98
[2018-08-18] MEDS ORDERED: Sodium Chloride 0.9% 1,000 ML IV STA (15:24)
--- NOTE | 2018-08-18 15:56 | ED PDOC ---
HPI: Abdomen Time Seen by Provider: 08/18/18 15:09 Chief Complaint (Nursing): Abdominal Pain Chief Complaint (Provider): Abdominal Pain History Per: Patient History/Exam Limitations: no limitations Onset/Duration Of Symptoms: Hrs Current Symptoms Are (Timing): Still Present Location Of Pain/Discomfort: Suprapubic Additional Complaint(s): 42 year old female with a past medical history of hypercholesterolemia who is presenting to the ED for evaluation of vaginal bleeding associated with lower abdominal cramping pain. Patient states that she was seen here earlier today and was diagnosed with demise and discharged home. She returns with increasing pain and bleeding. Patient offers no other medical complaints at this time. PMD: [facility] Abnormal Vaginal Bleeding: Yes Past Medical History Reviewed: Historical Data, Nursing Documentation, Vital Signs Vital Signs: Last Vital Signs Temp 98.0 F 08/18/18 15:04 Pulse 101 H 08/18/18 15:04 Resp 16 08/18/18 15:04 BP 134/64 08/18/18 15:04 Pulse Ox 100 08/18/18 15:04 - Medical History PMH: Hypercholesterolemia Denies: Depression, Chronic Kidney Disease - Surgical History Surgical History: (x2 ) - Family History Family History: States: Unknown Family Hx - Social History Current smoker - smoking cessation education provided: No Alcohol: None Drugs: Denies - Immunization History Hx Tetanus Toxoid Vaccination: No Hx Influenza Vaccination: No Hx Pneumococcal Vaccination: No - Home Medications Home Medications: Ambulatory Orders Medication Instructions Recorded Multivit/Folic Acid/I 1 tab BID 08/23/17 [] Naproxen [Naprosyn] 500 mg PO BID 5 Days #10 tablet 08/26/17 Acetaminophen/Codeine 1 tab PO Q6H PRN #12 tab 08/27/17 [Tylenol/Codeine 300 MG/30 MG] Doxycycline Monohydrate 100 mg PO BID #20 tablet 08/27/17 Methylergonovine Maleate 0.2 mg PO Q6 #4 tablet 08/27/17 [Methergine] Cyclobenzaprine [Cyclobenzaprine 10 mg PO TID #15 tab 06/06/18 HCl] Naproxen [Naprosyn] 500 mg PO BID #30 tablet 06/06/18 Acetaminophen with Codeine 1 tab PO Q6H PRN #10 tab 04/24/19 [Tylenol with Codeine No. 3 300 mg-30 mg] Ibuprofen [Motrin Tab] 600 mg PO Q6 PRN #16 tab 08/18/18 Ibuprofen [Motrin] 600 mg PO Q6H PRN #20 tab 08/18/18 - Allergies Allergies/Adverse Reactions: Allergies Allergy/AdvReac Type Severity Reaction Status Date / Time No Known Allergies Allergy Verified 08/18/18 15:04 Review of Systems ROS Statement: Except As Marked, All Systems Reviewed And Found Negative Gastrointestinal: Positive for: Abdominal Pain (lower abomdinal ) Genitourinary Female: Positive for: Vaginal Bleeding Physical Exam - Reviewed Nursing Documentation Reviewed: Yes Vital Signs Reviewed: Yes - Physical Exam Appears: Positive for: Non-toxic, No Acute Distress Head Exam: Positive for: ATRAUMATIC, NORMAL INSPECTION, NORMOCEPHALIC Skin: Positive for: Normal Color, Warm, DRY Eye Exam: Positive for: EOMI, Normal appearance, PERRL Neck: Positive for: Normal, Painless ROM Cardiovascular/Chest: Positive for: Regular Rate, Rhythm. Negative for: Murmur Respiratory: Positive for: Normal Breath Sounds. Negative for: Respiratory Distress Gastrointestinal/Abdominal: Positive for: Normal Exam, Soft. Negative for: Tenderness Pelvic Exam: Positive for: Other ( tissue in OS) Back: Positive for: Normal Inspection. Negative for: L CVA Tenderness, R CVA Tenderness, Vertebral Tenderness Extremity: Positive for: Normal ROM. Negative for: Deformity, Swelling Neurological/Psych: Positive for: Awake, Alert, Normal Tone, Oriented. Negative for: Motor/Sensory Deficits - Laboratory Results Result Diagrams: 08/18/18 16:11 08/18/18 16:11 - ECG O2 Sat by Pulse Oximetry: 100 (RA) Pulse Ox Interpretation: Normal Medical Decision Making Medical Decision Making: Time: 15:24 Plan: --Beta-HCG, Quantitative --CMP --CBC --IV Fluids --Toradol 30 mg IVP Tissue removed with forceps. Patient passed large amounts of products of conception with relief in symptoms. Mild to moderate bleeding after passing tissue but patient feels better. Will obtain blood work and will monitor for continued bleeding. Will reevaluate patient. feels better after pasasing products of conception. No pain, minimal bleeding. No dizziness.. Discussed with Missy Shah, pt can be dc'ed home with outpt f/u/ Scribe Attestation: Documented by Marie Quiñones, acting as a scribe for Butch Amador MD. Provider Scribe Attestation: All medical record entries made by the Scribe were at my direction and personally dictated by me. I have reviewed the chart and agree that the record accurately reflects my personal performance of the history, physical exam, me dical decision making, and the department course for this patient. I have also personally directed, reviewed, and agree with the discharge instructions and disposition. Disposition - Clinical Impression Clinical Impression: Spontaneous - Patient ED Disposition Is Patient to be Admitted: No Counseled Patient/Family Regarding: Diagnosis, Need For Followup - Disposition [facility] Disposition: Routine/Home Disposition Time: 17:46 Condition: FAIR Instructions: Miscarriage Forms: [employer] (Argentine) Print Language: SLOVAK
[2018-08-18 16:28] LABS: ALB/GLOB RATIO 1.3 (1.0-2.1); ALBUMIN 4.2 g/dL (3.5-5.0); ALT/SGPT 21 U/L (9-52); AST/SGOT 25 U/L (14-36); BLOOD UREA NITROGEN 7 mg/dl (7-17); GFR NON-AFRICAN AMERICAN > 60
[2018-08-18 16:35] LABS: BASO % 0.3 % (0.0-2.0); EOS # 0.1 K/uL (0.0-0.7); EOS % 0.5 % (0.0-4.0); HEMOGLOBIN 12.2 g/dL (12.0-16.0); LYMPH # 2.3 K/uL (1.0-4.3); LYMPH % 18.2 % (20.0-40.0); MEAN CELL VOLUME 91.5 fl (81.0-99.0); MEAN CORPUSCULAR HEMOGLOBIN 29.8 pg (27.0-31.0); MEAN CORPUSCULAR HGB CONC 32.5 g/dL (33.0-37.0); MEAN PLATELET VOLUME 8.9 fl (7.2-11.7); MONO # 0.7 K/uL (0.0-0.8); MONO % 5.3 % (0.0-10.0); NEUT # 9.4 K/uL (1.8-7.0); NEUT % 75.7 % (50.0-75.0); NRBC % 0.1 % (0.0-0.0); RBC 4.09 Mil/uL (3.80-5.20); RED CELL DISTRIBUTION WIDTH 14.6 % (11.5-14.5); WHITE BLOOD COUNT 12.5 K/uL (4.8-10.8)
[2018-08-18 18:11] VITALS: BP 110/60; PULSE 82; O2SAT 98
== END 2018-08-18 17:48 | disposition home or self-care (01) ==
LOC: H.ER 14:58
DX: O03.9 Complete or unspecified spontaneous abortion without complication (principal); Z3A.09 9 weeks gestation of pregnancy; E78.00 Pure hypercholesterolemia, unspecified
CPT/HCPCS: 80053; 84702; 85025; 88305; 96361; 96374; 99283; J1885; J7030